=== PATIENT | female | born 1935 | race African-American/Black ===

== ENCOUNTER 2018-12-31 16:40 | Inpatient (IN) | payer MEDICARE, MEDICAID ==
[~2018-12-31] VITALS: Ht 157.5 cm; Wt 69.4 kg
[2018-12-31 16:15] VITALS: BP 136/61
[~2018-12-31 16:40] MED LIST: AMLODIPINE PO; ASPIRIN PO; AZOPT BOTHEYE; BIMA2.5D4 BOTHEYE; CHOL400C8 PO; GABAPENTIN PO; GLIPIZIDE PO; HYDROCHLOROTHIAZIDE PO; IBUP-2028 PO; KLOR CON PO; LEVOXYL PO; METHADONE PO; SIMVASTATIN PO; TIMO5DRO27 BOTHEYE
[2018-12-31] MEDS ORDERED: LEVOFLOXACIN 500MG PREMIX 100 ML IV SCH ×2 (17:30→21:00)
[2018-12-31] MEDS ORDERED: DIPHENHYDRAMINE 50MG/ML VIAL IV PRN (17:30)
[2018-12-31] MEDS ORDERED: IPRATROPIUM/ALBUTEROL 0.5-3(2.5)MG/3ML NEB INH PRN (17:30)
[2018-12-31] MEDS ORDERED: ONDANSETRON HCL 4MG/2ML INJ IV PRN (17:30)
[2018-12-31] MEDS ORDERED: ENOXAPARIN 40MG/0.4ML SYR SUBCUT SCH (17:30)
[2018-12-31 17:41] VITALS: BP 136/61
[2018-12-31] MEDS ORDERED: CLON0.1T PO (17:58)
[2018-12-31] MEDS ORDERED: SIME125C PO (18:05)
[2018-12-31] MEDS ORDERED: LEVO100T PO (18:05)
[2018-12-31] MEDS ORDERED: ACET-2178 PO (18:05)
[2018-12-31] MEDS ORDERED: XALAO EACHEYE (18:05)
[2018-12-31] MEDS ORDERED: MOM PO (18:05)
[2018-12-31] MEDS ORDERED: DEPSPR PO (18:05)
[2018-12-31] MEDS ORDERED: LOPHC2 PO (18:05)
[2018-12-31] MEDS ORDERED: BRIM10DR2 EACHEYE (18:05)
[2018-12-31 20:00] VITALS: BP 115/39
[2018-12-31] MEDS: DEXT 5%/0.45% NACL 1000ML 1,000 ML IV SCH (21:00)
[2018-12-31] MEDS ORDERED: LORAZEPAM 2MG/ML CPJ IV PRN (22:30)
[2018-12-31] MEDS ORDERED: HYDRALAZINE 20MG/ML VIAL IV PRN (22:30)
[2019-01-01] VITALS: BP 109/50
[2019-01-01] MEDS: IPRATROPIUM/ALBUTEROL 0.5-3(2.5)MG/3ML NEB HHN SCH ×3 (00:33→16:59)
[2019-01-01 04:00] VITALS: BP 111/47
[2019-01-01] MEDS: ACETAMINOPHEN 650MG SUPP PR PRN (06:47)
[2019-01-01 07:52] VITALS: BP 129/38
[2019-01-01 08:13] LABS: BASOPHILS % 0.3 % (0.0-2.0); HEMATOCRIT. 24.7 % (36.0-48.0); HEMOGLOBIN. 8.2 g/dL (12.0-16.0); LYMPHOCYTES % 23.4 % (20.0-50.0); MEAN CORPUSCULAR HEMOGLOBIN 27.8 pg (28.0-32.0); MEAN CORPUSCULAR VOLUME 83.2 fL (81.0-99.0); MEAN PLATELET VOLUME 7.7 fl (7.4-10.4); MONOCYTES % 7.4 % (2.0-8.0); NEUTROPHILS % 68.9 % (40.0-76.0); PLATELET 211 x1000/uL (130-400); RED BLOOD CELL COUNT 2.97 mill/uL (4.2-5.4)
[2019-01-01 08:27] LABS: CHLORIDE 112 mEq/L (98-107)
[2019-01-01 08:44] LABS: PHOSPHORUS 1.4 mg/dL (2.5-4.9)
[2019-01-01 08:47] LABS: T4 FREE 1.21 ng/dL (0.76-1.46)
[2019-01-01] MEDS ORDERED: ENOXAPARIN 30MG/0.3ML SYR SUBCUT SCH (09:00)
[2019-01-01] MEDS: DEXT 5%/0.45% NACL 1000ML 1,000 ML IV SCH (10:13)
[2019-01-01] MEDS: DIVALPROEX SODIUM 250MG ER TABLET PO SCH (10:13)
[2019-01-01] MEDS: METOPROLOL TARTRATE 25MG TABLET PO SCH ×2 (10:15→21:00)
[2019-01-01] MEDS: BRIMONIDINE 0.2% OPHTH DROPS 5ML BOTHEYE SCH ×2 (10:16→20:56)
[2019-01-01] MEDS: FAMOTIDINE 20MG/2ML VIAL IV SCH (10:17)
[2019-01-01] MEDS ORDERED: POTASSIUM CHLORIDE 20MEQ/PACKET PO NR (10:30)
[2019-01-01 12:03] VITALS: BP 108/43
[2019-01-01] MEDS ORDERED: POTASSIUM PHOS,M-BASIC-D-BASIC 20 MMOL in DEXT 5% WATER 243.3333 ML IV NR (12:30)
[2019-01-01] MEDS: LEVOTHYROXINE SODIUM 125MCG TABLET PO SCH (13:50)
[2019-01-01] MEDS: SODIUM CHLORIDE 0.9% 1,000 ML IV SCH ×2 (13:51→23:49)
[2019-01-01 16:44] VITALS: BP 119/57
[2019-01-01 20:11] VITALS: BP 116/65
[2019-01-01] MEDS: LATANOPROST 0.005% OPHTH DROPS 2.5ML BOTHEYE SCH (20:56)
[2019-01-01] MEDS: LEVOFLOXACIN 250MG PREMIX 50 ML IV SCH (20:59)
[2019-01-02 00:37] VITALS: BP 122/69
[2019-01-02] MEDS: IPRATROPIUM/ALBUTEROL 0.5-3(2.5)MG/3ML NEB HHN SCH ×3 (01:07→15:39)
[2019-01-02 04:00] VITALS: BP 127/61
[2019-01-02 06:18] LABS: CHLORIDE 112 mEq/L (98-107)
[2019-01-02] MEDS: LEVOTHYROXINE SODIUM 125MCG TABLET PO SCH (06:28)
[2019-01-02 06:31] LABS: PHOSPHORUS 2.1 mg/dL (2.5-4.9)
[2019-01-02 07:11] LABS: BASOPHILS % 0.5 % (0.0-2.0); EOSINOPHILS % 0.1 % (0.0-5.0); HEMATOCRIT. 24.1 % (36.0-48.0); HEMOGLOBIN. 8.1 g/dL (12.0-16.0); LYMPHOCYTES % 20.1 % (20.0-50.0); MEAN CORPUSCULAR VOLUME 82.8 fL (81.0-99.0); MEAN PLATELET VOLUME 7.8 fl (7.4-10.4); MONOCYTES % 3.4 % (2.0-8.0); NEUTROPHILS % 75.9 % (40.0-76.0); PLATELET 205 x1000/uL (130-400); RED BLOOD CELL COUNT 2.91 mill/uL (4.2-5.4); RED CELL DISTRIBUTION WIDTH 19.8 % (11.6-14.6)
[2019-01-02 08:36] VITALS: BP 146/56
[2019-01-02] MEDS: ENOXAPARIN 40MG/0.4ML SYR SUBCUT SCH (09:45)
[2019-01-02] MEDS: DIVALPROEX SODIUM 250MG ER TABLET PO SCH (09:45)
[2019-01-02] MEDS: BRIMONIDINE 0.2% OPHTH DROPS 5ML BOTHEYE SCH ×2 (09:46→21:03)
[2019-01-02] MEDS: FAMOTIDINE 20MG/2ML VIAL IV SCH (09:46)
[2019-01-02] MEDS: METOPROLOL TARTRATE 25MG TABLET PO SCH ×2 (09:47→21:03)
[2019-01-02] MEDS ORDERED: POTASSIUM CHLORIDE 20MEQ/PACKET PO NR (10:15)
[2019-01-02] MEDS ORDERED: POTASSIUM PHOS,M-BASIC-D-BASIC 15 MMOL in DEXT 5% WATER 245 ML IV NR (12:00)
[2019-01-02] MEDS ORDERED: MAGNESIUM 1 G PREMIX 100 ML IV NR (12:00)
[2019-01-02 12:28] VITALS: BP 120/47
[2019-01-02] MEDS: SODIUM CHLORIDE 0.9% 1,000 ML IV SCH (13:26)
[2019-01-02 16:01] VITALS: BP 112/44
[2019-01-02] MEDS: ACETAMINOPHEN 650MG SUPP PR PRN (16:56)
[2019-01-02 20:43] VITALS: BP 149/71
[2019-01-02] MEDS: LATANOPROST 0.005% OPHTH DROPS 2.5ML BOTHEYE SCH (21:03)
[2019-01-02] MEDS: LEVOFLOXACIN 250MG PREMIX 50 ML IV SCH (21:06)
[2019-01-03] MEDS: IPRATROPIUM/ALBUTEROL 0.5-3(2.5)MG/3ML NEB HHN SCH ×3 (00:33→16:42)
[2019-01-03 00:36] VITALS: BP 155/57
[2019-01-03] MEDS: SODIUM CHLORIDE 0.9% 1,000 ML IV SCH ×3 (03:19→20:44)
[2019-01-03 04:00] VITALS: BP 142/62
[2019-01-03] MEDS: LEVOTHYROXINE SODIUM 125MCG TABLET PO SCH (06:30)
[2019-01-03 08:00] VITALS: BP 156/68
[2019-01-03] MEDS: ENOXAPARIN 40MG/0.4ML SYR SUBCUT SCH (09:35)
[2019-01-03] MEDS: METOPROLOL TARTRATE 25MG TABLET PO SCH ×2 (09:35→20:37)
[2019-01-03] MEDS: FAMOTIDINE 20MG/2ML VIAL IV SCH (09:35)
[2019-01-03] MEDS: BRIMONIDINE 0.2% OPHTH DROPS 5ML BOTHEYE SCH ×2 (09:36→20:36)
[2019-01-03] MEDS: DIVALPROEX SODIUM 250MG ER TABLET PO SCH (10:25)
[2019-01-03 11:40] LABS: CHLORIDE 111 mEq/L (98-107)
[2019-01-03 11:45] LABS: PHOSPHORUS 2.2 mg/dL (2.5-4.9)
[2019-01-03 12:22] VITALS: BP 136/67
[2019-01-03] MEDS ORDERED: POTASSIUM CHLORIDE 20MEQ/PACKET PO NR ×2 (13:30→20:00)
[2019-01-03] MEDS ORDERED: POTASSIUM PHOS,M-BASIC-D-BASIC 30 MMOL in DEXT 5% WATER 500 ML IV NR (15:00)
[2019-01-03 16:41] VITALS: BP 145/76
[2019-01-03 20:00] VITALS: BP 135/81
[2019-01-03] MEDS: LATANOPROST 0.005% OPHTH DROPS 2.5ML BOTHEYE SCH (20:36)
[2019-01-03] MEDS: LEVOFLOXACIN 250MG PREMIX 50 ML IV SCH (21:00)
[2019-01-04] VITALS (7 sets, daily range): BP systolic 110–175; BP diastolic 57–82
[2019-01-04] MEDS: LEVOFLOXACIN 250MG PREMIX 50 ML IV SCH (00:52)
[2019-01-04] MEDS: IPRATROPIUM/ALBUTEROL 0.5-3(2.5)MG/3ML NEB HHN SCH ×4 (01:26→20:32)
[2019-01-04] MEDS: LEVOTHYROXINE SODIUM 125MCG TABLET PO SCH (06:29)
[2019-01-04 07:25] LABS: PHOSPHORUS 2.7 mg/dL (2.5-4.9)
[2019-01-04] MEDS: DIVALPROEX SODIUM 250MG ER TABLET PO SCH (09:00)
[2019-01-04] MEDS: METOPROLOL TARTRATE 25MG TABLET PO SCH ×2 (09:00→21:08)
[2019-01-04] MEDS: ENOXAPARIN 40MG/0.4ML SYR SUBCUT SCH (09:00)
[2019-01-04] MEDS: FAMOTIDINE 20MG/2ML VIAL IV SCH (09:51)
[2019-01-04] MEDS: BRIMONIDINE 0.2% OPHTH DROPS 5ML BOTHEYE SCH ×2 (11:12→21:00)
[2019-01-04] MEDS ORDERED: POTASSIUM CHLORIDE 20MEQ/PACKET PO SCH (13:15)
[2019-01-04] MEDS ORDERED: POTASSIUM CHLORIDE INJ 40 MEQ in DEXT 5% WATER 250 ML IV NR (15:30)
[2019-01-04] MEDS: LATANOPROST 0.005% OPHTH DROPS 2.5ML BOTHEYE SCH (21:00)
== END 2019-01-04 21:30 | DRG 871 ==
LOC: 6WST 16:40
PROVIDERS: ADMIT Internal Medicine; ATTEND Internal Medicine
DX: A41.9 Sepsis, unspecified organism (principal); G93.41 Metabolic encephalopathy; N39.0 Urinary tract infection, site not specified; I10 Essential (primary) hypertension; E03.9 Hypothyroidism, unspecified; M19.90 Unspecified osteoarthritis, unspecified site; D64.9 Anemia, unspecified; F29 Unspecified psychosis not due to a substance or known physiological condition; L89.159 Pressure ulcer of sacral region, unspecified stage; F03.90 Unspecified dementia, unspecified severity, without behavioral disturbance, psychotic disturbance, mood disturbance, and anxiety; E87.6 Hypokalemia; H40.9 Unspecified glaucoma; Z99.3 Dependence on wheelchair; Z79.1 Long term (current) use of non-steroidal anti-inflammatories (NSAID); Z79.899 Other long term (current) drug therapy; Z90.49 Acquired absence of other specified parts of digestive tract
CPT/HCPCS: 36415; 80048; 80051; 83735; 84100; 84134; 84439; 84443; 92610; 94640; J1650; J1956; J2405; J3475; J3480; J3490; J7030; J7060; J7620